=== PATIENT | male | born 1935 | race Caucasian/White ===

== ENCOUNTER 2024-02-04 13:38 | Emergency (ER) | payer MEDICARE, OTHER ==
[2024-02-04] MEDS ORDERED: Activase 100 MG IV ONE (13:39)
[2024-02-04 14:00] VITALS: TEMP 97.9
[2024-02-04 14:04] LABS: Absolute Neutrophil Ct (ANC) 4.86 x10^3/uL (1.78-5.38); BASOPHIL % 0.9 % (0.2-1.2); Basophil (Absolute #) 0.07 x10^3/uL (0.01-0.08); Eosinophil % 2.8 % (0.8-7.0); Eosinophil (Absolute #) 0.21 x10^3/uL (0.04-0.54); Hematocrit 35.2 % (40.1-51.0); Hemoglobin 11.6 g/dL (13.7-17.5); IMMATURE GRAN # 0.02 x10^3u/L (0.001-0.031); IMMATURE GRAN % 0.3 % (0.001-0.429); Lymphocyte (Absolute #) 1.65 x10^3/uL (1.32-3.57); Lymphocytes % 22.1 % (21.8-53.1); Mean Cell Volume 90.5 fL (79.0-92.2); Mean Corpuscular Hemoglobin 29.8 pg (25.7-32.2); Mean Platelet Volume 9.8 fL (9.4-12.4); Monocyte (Absolute #) 0.65 x10^3/uL (0.30-0.82); Monocytes % 8.7 % (5.3-12.2); Neutrophil % 65.2 % (34.0-67.9); Platelet Count 307 x10^3/uL (163-337); Red Blood Count 3.89 x10^6/uL (4.63-6.08); Red Cell Distribution Width 13.5 % (11.6-14.4); White Blood Count 7.5 x10^3/uL (4.23-9.07)
--- NOTE | 2024-02-04 14:12 | ERPHSYRPT ---
- History of Present Illness Source: patient, family Exam Limitations: no limitations Patient Subjective Stated Complaint: c/o of blurred vision and weakness Triage Nursing Assessment: patient brought to ED by grandson with c/o of right eye blurred visiona nd weakness. Patient denies any pain, brought in by wheelchair, patient states that he has been putting in eye drops that he bought OTC. Left pupil 4mm and right pupil is about a 3 mm. PERRLA present. pt is slightly hypertensive, pulses normal, skin w/n/d, patient doesn't appear to be in any distress at this time. Hx Tetanus, Diphtheria Vaccination/Date Given: No (UNKNOWN) Hx Influenza Vaccination/Date Given: No Hx Pneumococcal Vaccination/Date Given: No - History of Present Illness Time Seen by Provider: 02/04/24 13:49 Physician History: 88-year-old male fairly healthy with history of hypertension presented in the ER with complains of sudden onset right-sided visual disturbance around 12:30 PM while patient was driving to his grandson's house. Patient reports he cannot see on the right half of right eye and inferior half of right eye. Denies any eye pain or discharge but does report having some burning sensation yesterday and put some [id number] eyedrops and patient has bilateral dilated reacting pupils. Patient denies any other focal numbness tingling or weakness. Denies any difficulty speech. No history of stroke. Not taking any anticoagula tion. (SHAHNAZ MERRILL) Allergies/Adverse Reactions: No Known Drug Allergies Allergy (Unverified 07/15/13 08:42) Home Medications: Multivitamin W-Minerals/Lutein [Centrum Silver Tablet] 1 each PO DAILY 07/15/13 [History] Amlodipine Besylate 5 mg [Norvasc 5 mg] 5 mg PO DAILY 02/04/24 [History] Lisinopril 10 mg [Zestril 10 MG] 20 mg PO DAILY 02/04/24 [History] Travel Risk - International Travel Have you traveled outside of the country in past 3 weeks: No - Emerging Infectious Disease Are you exhibiting symptoms associated with any current EIDs: No - Review of Systems Constitutional: Fatigue Eyes: Vision Changes Ears, Nose, & Throat: No Symptoms Respiratory: No Symptoms Cardiac: No Symptoms Abdominal/Gastrointestinal: No Symptoms Genitourinary Symptoms: No Symptoms Musculoskeletal: Arthralgias Skin: No Symptoms Psychological: No Symptoms Endocrine: No Symptoms - Past Medical History Pertinent Past Medical History: No Neurological History: No Pertinent History ENT History: No Pertinent History Cardiac History: No Pertinent History Respiratory History: No Pertinent History Endocrine Medical History: No Pertinent History Musculoskeletal History: No Pertinent History GI Medical History: No Pertinent History History: No Pertinent History Psycho-Social History: No Pertinent History Male Reproductive Disorders: No Pertinent History - Past Surgical History Past Surgical History: No Neuro Surgical History: No Pertinent History Cardiac: No Pertinent History Respiratory: No Pertinent History Gastrointestinal: No Pertinent History Genitourinary: No Pertinent History Musculoskeletal: No Pertinent History Male Surgical History: No Pertinent History - Social History Smoking Status: Never smoker Exposure to second hand smoke: No Drug Use: none Patient Lives Alone: No - Social Determinants of Health Will the patient participate in the screening: Declined to provide - Fernanda Coma Scale Best Eye Response (Unity): (4) open spontaneously Best Verbal Response (Fernanda): (5) oriented Best Motor Response (Unity): (6) obeys commands Unity Total: 15 - Physical Exam General Appearance: no apparent distress, alert Eye Exam: bilateral eye: normal inspection (Dilated pupils), PERRL, EOMI Ears, Nose, Throat Exam: normal ENT inspection, TMs normal, pharynx normal, moist mucous membranes Neck Exam: normal inspection, non-tender, supple, full range of motion Respiratory: normal breath sounds, lungs clear Cardiovascular: regular rate/rhythm, normal heart sounds Gastrointestinal: soft, normal bowel sounds, No tenderness Back Exam: normal inspection Extremity Exam: normal inspection, normal range of motion Mental Status: alert, oriented x 3, 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 Exam: normal hearing, normal speech, PERRL Coordination/Gait: normal finger to nose Motor/Sensory: no motor deficit, no pronator drift, negative Babinski's sign DTR: bicep (R): 2+, bicep (L): 2+, knee (R): 2+, knee (L): 2+ Skin Exam: normal color SpO2 Interpretation: normal SpO2: 97 O2 Delivery: Room Air - Nursing Vital Signs Nursing Vital Signs: Initial Vital Signs Temperature 97.9 F 02/04/24 13:45 Pulse Rate 82 02/04/24 13:45 Respiratory Rate 18 02/04/24 13:45 Blood Pressure 154/75 02/04/24 13:45 O2 Sat by Pulse Oximetry 97 02/04/24 13:45 Pain Scale Pain Intensity 0 - Course EKG Interpreted by Me: RATE (81), Sinus Rhythm, NORMAL AXIS, NORMAL INTERVALS, NORMAL QRS Ordered Tests: Active Orders 24 hr Category Date Time Status Dirt Supervisor STAT Care 02/04/24 13:50 Active EKG-ER Only STAT Care 02/04/24 13:49 Active IV Insertion STAT Care 02/04/24 13:49 Active NPO (ED) STAT Care 02/04/24 13:49 Active POCT Glucose Check STAT Care 02/04/24 13:53 Active Pulse Oximetry (ED) STAT Care 02/04/24 13:49 Active Re-Check Vital Signs STAT Care 02/04/24 13:49 Active Tele-Health Consult ROUTINE Cons 02/04/24 14:[address] ANGIOGRAPHY NECK [CT] Stat Exams 02/04/24 17:19 Completed CTA HEAD W AND/OR WO CONTRAST [CT] Stat Exams 02/04/24 17:19 Completed HEAD WITHOUT CONTRAST [CT] Stat Exams 02/04/24 13:40 Completed CBC W DIFF Stat Lab 02/04/24 13:55 Completed CMP Stat Lab 02/04/24 13:55 Completed PROTIME WITH INR Stat Lab 02/04/24 13:55 Completed PTT Stat Lab 02/04/24 13:55 Completed TROPONIN Q3H Lab 02/04/24 13:55 Completed TROPONIN Q3H Lab 02/04/24 17:03 Completed TROPONIN Q3H Lab 02/04/24 20:00 Ordered UA W/RFX UR CULTURE Stat Lab 02/04/24 16:24 Completed Medication Summary Discontinued Medications Generic Name Dose Route Start Last Admin Trade Name Andrew PRN Reason Stop Dose Admin Acetaminophen 1,000 mg 02/04/24 14:59 02/04/24 15:04 Acetaminophen 500 Mg Tablet PO 02/04/24 15:00 1,000 mg STAT STA Administration Acetaminophen Confirm 02/04/24 15:03 Acetaminophen 500 Mg Tablet Administered 02/04/24 15:04 Dose 1,000 mg .ROUTE .STK-MED ONE Sodium Chloride Confirm 02/04/24 14:49 Sodium Chloride 0.9% 1000 Ml Administered 02/04/24 14:50 Dose 1,000 mls @ ud .ROUTE .STK-MED ONE Lab/Rad Data: Laboratory Result Diagrams 02/04/24 13:55 02/04/24 13:55 Laboratory Results 02/04/24 02/04/24 02/04/24 Range/Units 17:03 16:24 13:55 WBC (4.23-9.07) x10^3/uL RBC (4.63-6.08) x10^6/uL Hgb (13.7-17.5) g/dL Hct (40.1-51.0) % MCV (79.0-92.2) fL MCH (25.7-32.2) pg MCHC (32.3-36.5) g/dL RDW (11.6-14.4) % Plt Count (163-337) x10^3/uL MPV (9.4-12.4) fL Gran % (34.0-67.9) % Immature Gran % (Auto) (0.001-0.429) % Nucleat RBC Rel Count (0.00-0.2) % Eos # (Auto) (0.04-0.54) x10^3/uL Immature Gran # (Auto) (0.001-0.031) x10^3u/L Absolute Lymphs (auto) (1.32-3.57) x10^3/uL Absolute Monos (auto) (0.30-0.82) x10^3/uL Absolute Nucleated RBC (0.00-0.012) x10^3u/L Lymphocytes % (21.8-53.1) % Monocytes % (5.3-12.2) % Eosinophils % (0.8-7.0) % Basophils % (0.2-1.2) % Absolute Granulocytes (1.78-5.38) x10^3/uL Basophils # (0.01-0.08) x10^3/uL PT (9.4-12.5) SECONDS INR (0.8-3.0) APTT (25.1-36.5) SECONDS Sodium (135-145) mmol/L Potassium (3.5-5.1) mmol/L Chloride (98-107) mmol/L Carbon Dioxide (22-30) mmol/L Anion Gap (5-15) MEQ/L BUN (9-20) mg/dL Creatinine (0.66-1.25) mg/dL Estimated GFR ML/MIN Glucose (74-106) mg/dL Calcium (8.4-10.2) mg/dL Total Bilirubin (0.2-1.3) mg/dL AST (17-59) U/L ALT (0-50) U/L Alkaline Phosphatase (38-126) U/L Troponin I < 0.012 0.013 (0.000-0.033) ng/mL Serum Total Protein (6.3-8.2) g/dL Albumin (3.5-5.0) g/dL Urine Color Yellow (Yellow) Urine Appearance Clear (Clear) Urine pH 7.0 (4.6-8.0) Ur Specific Stanford 1.015 (1.005-1.030) Urine Protein Negative (Negative) Urine Glucose (UA) Negative (Negative) mg/dL Urine Ketones Negative (Negative) Urine Blood Negative (Negative) Urine Nitrite Negative (Negative) Urine Bilirubin Negative (Negative) Urine Urobilinogen 1.0 A (0.2) mg/dL Ur Leukocyte Esterase Negative (Negative) U Hyaline Cast (Auto) 3-5 A (0-2) /LPF Urine Microscopic RBC 0-2 (0-5) /HPF Urine Microscopic WBC 0-2 (0-5) /HPF Ur Epithelial Cells None Seen (None Seen) /HPF Urine Bacteria None Seen (None Seen) /HPF Urine Culture Reflexed NO (NO) 02/04/24 02/04/24 02/04/24 Range/Units 13:55 13:55 13:55 WBC 7.5 (4.23-9.07) x10^3/uL RBC 3.89 L (4.63-6.08) x10^6/uL Hgb 11.6 L (13.7-17.5) g/dL Hct 35.2 L (40.1-51.0) % MCV 90.5 (79.0-92.2) fL MCH 29.8 (25.7-32.2) pg MCHC 33.0 (32.3-36.5) g/dL RDW 13.5 (11.6-14.4) % Plt Count 307 (163-337) x10^3/uL MPV 9.8 (9.4-12.4) fL Gran % 65.2 (34.0-67.9) % Immature Gran % (Auto) 0.3 (0.001-0.429) % Nucleat RBC Rel Count 0.0 (0.00-0.2) % Eos # (Auto) 0.21 (0.04-0.54) x10^3/uL Immature Gran # (Auto) 0.02 (0.001-0.031) x10^3u/L Absolute Lymphs (auto) 1.65 (1.32-3.57) x10^3/uL Absolute Monos (auto) 0.65 (0.30-0.82) x10^3/uL Absolute Nucleated RBC 0.00 (0.00-0.012) x10^3u/L Lymphocytes % 22.1 (21.8-53.1) % Monocytes % 8.7 (5.3-12.2) % Eosinophils % 2.8 (0.8-7.0) % Basophils % 0.9 (0.2-1.2) % Absolute Granulocytes 4.86 (1.78-5.38) x10^3/uL Basophils # 0.07 (0.01-0.08) x10^3/uL PT 10.0 (9.4-12.5) SECONDS INR 0.91 (0.8-3.0) APTT 24.5 L (25.1-36.5) SECONDS Sodium 136 (135-145) mmol/L Potassium 4.6 (3.5-5.1) mmol/L Chloride 99 (98-107) mmol/L Carbon Dioxide 22 (22-30) mmol/L Anion Gap 18.3 H (5-15) MEQ/L BUN 18 (9-20) mg/dL Creatinine 1.27 H (0.66-1.25) mg/dL Estimated GFR 54.7 ML/MIN Glucose 117 H (74-106) mg/dL Calcium 9.6 (8.4-10.2) mg/dL Total Bilirubin 0.60 (0.2-1.3) mg/dL AST 37 (17-59) U/L ALT 23 (0-50) U/L Alkaline Phosphatase 97 (38-126) U/L Troponin I (0.000-0.033) ng/mL Serum Total Protein 7.4 (6.3-8.2) g/dL Albumin 4.4 (3.5-5.0) g/dL Urine Color (Yellow) Urine Appearance (Clear) Urine pH (4.6-8.0) Ur Specific Stanford (1.005-1.030) Urine Protein (Negative) Urine Glucose (UA) (Negative) mg/dL Urine Ketones (Negative) Urine Blood (Negative) Urine Nitrite (Negative) Urine Bilirubin (Negative) Urine Urobilinogen (0.2) mg/dL Ur Leukocyte Esterase (Negative) U Hyaline Cast (Auto) (0-2) /LPF Urine Microscopic RBC (0-5) /HPF Urine Microscopic WBC (0-5) /HPF Ur Epithelial Cells (None Seen) /HPF Urine Bacteria (None Seen) /HPF Urine Culture Reflexed (NO) - Progress Progress: unchanged, re-examined Discussed with DrLeigh: Other Counseled pt/family regarding: lab results, diagnosis, rad results - Progress Progress Note: 02/04/24 15:55 88-year-old with history of hypertension is evaluated in the ER with sudden onset blurry vision and right peripheral vision loss around 1230 while he was driving. Patient is made stroke activated with prompt CT head is obtained which is negative. [facility] neurology consult is immediately obtained and neurology Dr. Alba has seen patient and agreed that patient is within the window for stroke. Discussed with patient, grandson Brandon who is in the ER and daughter who is over the phone in detail about risk and benefits of tPA in detail and after answering all questions they all agreed to go ahead with tPA. Patient has no absolute contraindications for tPA. Patient has a INR of 0.9, PT of 10 and PTT of 24.5 with stable H&H and platelets. No acute electrolyte derangements. Patient received the bolus dose of tPA at 1450 followed by infusion with frequent vitals check and neurology assessment and patient remained stable although has no significant improvement in the deficit. 02/04/24 17:20 I have discussed with Dr. Cox hospitalist here who recommended transfer to facility with neurology inpatient services. I have discussed with Dr. Vincent neurology out [facility], reviewed history, workup, recommended transfer to facility with inpatient ophthalmology as well as neurology in a tertiary care setting to make sure patient does not have any intrinsic issue with the eye. He also recommended obtaining CTAs which are ordered. 02/04/24 18:15 Discussed with neurology [facility], reviewed history, workup, agreed with transfer. Plan discussed with patient and family and they agree. CTAs are done but pending read. 02/04/24 18:53 I have discussed with Dr. Mathis at end of my shift about patient with pending transfer and CT results and will communicate with transfer facility if needed depending on the CT results. (SHAHNAZ MERRILL) 02/04/24 19:24 I spoke with , the neurologist at [facility]. I gave her the updated radiologist impression of the CT angiography of the neck. While I was speaking to her she stated that she thinks the films just came up. Based on the fact the patient's clinical status is stable and the findings on the CT scan angiography of the neck, she states there are no new clinical management recommendations. She stated that the blood pressure can run as it is as long as it is not over 180/100 since the patient received tPA. (GILBERT MATHIS) Medical Desision Making - Discussion of managment Care discussed with:: specialist (Dr. Alba [facility] neurology, Dr. Jackson and [place] neurology, [facility] neurology) Reviewed:: Test results Agreed on:: Treatment plan Will see patient: in hospital - Diagnostic Testing Diagnostic test were ordered, analyzed, and reviewed by me: Yes Radiological Interpretation: Reviewed by me, Teleradiologist Report - Risk of complications The pt has a mod risk of morbidity or mortality based on: Need for prescription drug management The pt has a high risk of morbidity or mortality based on: Decision regarding hospitilization or escalation of hosp level of care - Departure Departure Disposition: Transfer Critical Care Time: Yes Critical Care Time(excluding separately billable procedures): Critical 75-104 mins - Departure Clinical Impression: Stroke, Vision loss night Condition: Fair Referrals: DOCTOR,NO FAMILY [Primary Care Provider] - Follow up/PCP as directed
[2024-02-04 14:18] LABS: ALBUMIN 4.4 g/dL (3.5-5.0); ANION GAP 18.3 MEQ/L (5-15); BILIRUBIN,TOTAL 0.6 mg/dL (0.2-1.3); Calcium 9.6 mg/dL (8.4-10.2); Creatinine 1 1.27 mg/dL (0.66-1.25); EST GLOMERULAR FILTRATION RATE 54.7 ML/MIN; Potassium 4.6 mmol/L (3.5-5.1); Total Protein 7.4 g/dL (6.3-8.2)
[2024-02-04 14:19] LABS: INR 0.91 (0.8-3.0); PTT 24.5 SECONDS (25.1-36.5)
--- NOTE | 2024-02-04 14:24 | XRAY ---
CLINICAL HISTORY: weakness COMPARISON: None. TECHNIQUE: Axial non-contrast CT scan of the brain was performed from the skull base to the high parietal region. One of the following dose reduction techniques were utilized for this exam: Automated exposure control, adjustment of the mA and/or kV according to patient size, use of iterative reconstruction. FINDINGS: Brain Parenchyma: No acute territorial infarct, hemorrhagic pathology Multiple deep periventricular white matter hypodensities related to mild small vessel disease. Small left thalamic hypodense focus related to old lacunar infarction. No other abnormal areas of hypo- or hyperattenuation. Age-related cerebral atrophic changes as evidenced by prominent sulci and gyral pattern and prominent lateral ventricles Atheromatous calcifications of bilateral ICA at cavernous segments noted Ventricular System: Age-related prominence of lateral ventricles No evidence of hydrocephalus or ventricular enlargement. Subarachnoid Spaces: Normal sulci and cisterns. No evidence of subarachnoid hemorrhage or extra-axial fluid collections. Cerebellum and Brainstem: Normal size and signal. No masses, lesions, or areas of abnormal signal. Orbits: Normal appearance of the globes, optic nerves, and extraocular muscles. No evidence of orbital masses or abnormal signals. Sinuses: Clear paranasal sinuses. No evidence of sinusitis or mucosal thickening. Mastoid Air Cells: Clear mastoid air cells. No evidence of mastoiditis. Skull and Meninges: Normal skull morphology. Atlantodental osteoarthritic changes noted IMPRESSION: 1. Age related cerebral atrophic and chronic microvascular ischemic changes 2. Small left thalamic hypodense focus related to old lacunar infarction. 3. Early changes of acute ischemic infarct may sometimes not be detected on a CT scan. If clinically needed, MRI with diffusion-weighted imaging is recommended for further evaluation. Electronically Signed by: Catherine Hill MD. (02/04/2024 14:19:02 EST)
[2024-02-04] MEDS ORDERED: Sodium Chloride 0.9% 1000 ML 1,000 ML ONE (14:49)
[2024-02-04] MEDS ORDERED: TYLENOL EXTRA STRENGTH 500 MG ONE (15:03)
[2024-02-04] MEDS: TYLENOL EXTRA STRENGTH 500 MG PO STA (15:04)
[2024-02-04 18:03] LABS: Appearance Clear (Clear); Bacteria None Seen /HPF (None Seen); Bilirubin Negative (Negative); Blood Negative (Negative); Epithelial Cells None Seen /HPF (None Seen); Glucose, Urine Negative (Negative); Ketones Negative (Negative); Leukocyte Esterase Negative (Negative); Nitrite Negative (Negative); Protein,Urine Dip Negative (Negative); RBC 0-2 /HPF (0-5); Specific Gravity 1.015 (1.005-1.030); WBC 0-2 /HPF (0-5)
--- NOTE | 2024-02-04 18:45 | XRAY ---
CLINICAL HISTORY: right side vision loss COMPARISON: None. TECHNIQUE: CT angiography study of the neck vessels with 80cc isovue 370 IV contrast was performed and multiple axial sections were obtained with coronal and sagittal reconstructions. One of the following dose reduction techniques were utilized for this exam: Automated exposure control, adjustment of the mA and/or kV according to patient size, and use of iterative reconstruction. One of these 3D techniques was utilized: Maximum Intensity Pixel (MIP), 3D Reconstructed Images, Volume Rendered Images, Surface Shaded Rendering. FINDINGS: Carotid Arteries: Vascular calcifications of the common and internal carotid arteries as well as the carotid bulbs bilaterally. Short focal stenotic segment at the origin of the right internal carotid artery showing about 70% luminal diameter reduction. Short focal stenotic segment at the origin of the left internal carotid artery showing about 50% luminal diameter reduction. Tortuous corse of both internal carotid arteries. No evidence of dissection or aneurysm. Vertebral Arteries: Vertebral arteries bilaterally are well-opacified. Diffusely dilated whole course of the left vertebral artery showing scattered tiny calcifications. Diffusely attenuated whole course of the right vertebral artery showing scattered tiny calcifications. No evidence of significant stenosis, occlusion, or aneurysm. A beaded course of the basilar artery showing short focal stenosis at its origin reaching about 50% luminal diameter reduction. Jugular Veins: Not opacified in the arterial phase. Subclavian Arteries: Vascular calcifications of the aortic arch, bilateral subclavian arteries. No evidence of significant stenosis, occlusion, or aneurysm. Thyroid Gland: Normal size and morphology of the thyroid gland. No masses or nodules. Soft Tissues: Normal appearance of the surrounding soft tissues of the neck. No abnormal masses or lymphadenopathy. Cervical Spine: Spine degenerative changes. Lung apices show bilateral fibrosis with calcifications. IMPRESSION: 1. Diffuse atherosclerotic changes. 2. 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 3. Dominant left vertebral artery. Electronically Signed by: Catherine Hill MD. (02/04/2024 18:40:39 EST)
--- NOTE | 2024-02-04 18:48 | XRAY ---
CLINICAL HISTORY: right side vision loss COMPARISON: CT brain done on the same day was reviewed. TECHNIQUE: Axial CT angiography of the head was done with contrast and sagittal and coronal reformats with MIP reconstructions. 80 cc of isovue 370 was administered intravenously. One of these 3D techniques was utilized: Maximum Intensity Pixel (MIP), 3D Reconstructed Images, Volume Rendered Images, Surface Shaded Rendering. One of the following dose reduction techniques was utilized for this exam: Automated exposure control, adjustment of the mA and/or kV according to patient size, and use of iterative reconstruction. CTDI: 21.6 mGy DLP: 594.24 mGy-cm. FINDINGS: Intracranial Arteries: Tiny vascular calcifications of the intracranial carotid and vertebral arteries. Dominant left vertebral artery. The beaded appearance of the basilar artery with focal 50% luminal diameter reduction at its origin. The intracranial portions of the internal carotid arteries, anterior cerebral arteries, middle cerebral arteries, posterior cerebral arteries, basilar artery, and vertebral arteries are well-opacified. No evidence of dissection or aneurysm. [place] of [place]: The posterior communicating arteries are not well visualized. Venous Structures: Normal opacification of the major dural venous sinuses. No evidence of venous sinus thrombosis. Brain Parenchyma: Exaggerated white matter hypodensity capping both lateral ventricles. Normal attenuation of the cerebellum, and brainstem. 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 No evidence of acute infarct, hemorrhage, or mass effect. No abnormal areas of enhancement post-contrast. Ventricular System: Ventricles are mildly dilated. Subarachnoid Spaces: Accentuated sulci and cisterns. No evidence of subarachnoid hemorrhage or extra-axial fluid collections. Cerebellum and Brainstem: prominent cerebellar folia. No masses, lesions, or areas of abnormal signal. No abnormal enhancement post-contrast. Pituitary Gland: Normal size and morphology. No evidence of pituitary adenoma or other sellar/suprasellar mass. Orbits: Normal appearance of the globes, optic nerves, and extraocular muscles. No evidence of orbital masses or abnormal enhancement. Sinuses: Clear paranasal sinuses. No evidence of sinusitis or mucosal thickening. Mastoid Air Cells: Clear mastoid air cells. No evidence of mastoiditis. Cranial Nerves: Normal appearance of the visualized cranial nerves. No evidence of abnormal enhancement or mass effect. Skull and Meninges: Normal skull morphology. IMPRESSION: 1. 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 2. Dominant left vertebral artery. 3. Tiny vascular calcifications of the intracranial carotid and vertebral arteries. 4. Involutional brain changes with small vessel ischemic changes. 5. Left sublenticular cyst. Electronically Signed by: Catherine Hill MD. (02/04/2024 18:43:23 EST)
[2024-02-04 19:04] VITALS: RESP 16
[2024-02-04 19:44] VITALS: O2SAT 97
[2024-02-04 21:04] VITALS: BP 112/73; PULSE 84
== END 2024-02-04 21:18 | disposition short-term general hospital (02) ==
LOC: ED 13:38
DX: I63.9 Cerebral infarction, unspecified (principal); H54.61 Unqualified visual loss, right eye, normal vision left eye; R29.700 NIHSS score 0; Z79.899 Other long term (current) drug therapy
CPT/HCPCS: 36415; 70450; 70496; 70498; 80053; 81001; 84484; 85025; 85610; 85730; 93005; 93041; 94760; 99291; 99292; Q3014; 99285; J2997; A9270-GY